=== PATIENT | male | born 1960 | race Hispanic/Latino ===

== ENCOUNTER 2018-05-14 09:18 | Emergency (ER) | payer OTHER ==
[~2018-05-14] VITALS: Ht 177.8 cm; Wt 95.3 kg
--- NOTE | 2018-05-14 10:09 | Diagnostic Imaging Report ---
PROCEDURE:FOOT 3 VIEW RT - HOPD COMPARISON:None. INDICATIONS:Right foot pain FINDINGS:There is no fracture or dislocation. Bony mineralization appears intact. No bony erosions. Mild soft tissue swelling. Spurring of the calcaneus at the insertion of the plantar fascia and Achilles tendon is noted. CONCLUSION:Mild spurring of the calcaneus. Carlo Frias D.O. Dictated by: Carlo Frias D.O. on 05/14/2018 at 10:19 Electronically approved by: Carlo Frias D.O. on 05/14/2018 at 10:19
== END 2018-05-14 11:54 | disposition home or self-care (01) ==
LOC: FSED 09:18
DX: M79.671 Pain in right foot (principal); M10.071 Idiopathic gout, right ankle and foot
CPT/HCPCS: 80053; 99283

== ENCOUNTER → 2024-04-21 | Day surgery (SDC) | payer BC, OTHER ==
[2024-04-21 12:40] VITALS: BP 130/82; PULSE 65; RESP 16; O2SAT 96
== END | disposition home or self-care (01) ==
LOC: OR 09:12 → EDBD 13:00
PROVIDERS: ATTEND Internal Medicine Gastroenterology
DX: Z12.11 Encounter for screening for malignant neoplasm of colon (principal); D12.3 Benign neoplasm of transverse colon; D12.4 Benign neoplasm of descending colon; D12.5 Benign neoplasm of sigmoid colon; K62.1 Rectal polyp; K62.89 Other specified diseases of anus and rectum; K64.8 Other hemorrhoids; Z71.89 Other specified counseling; Z71.3 Dietary counseling and surveillance; E66.9 Obesity, unspecified; Z01.810 Encounter for preprocedural cardiovascular examination; Z68.32 Body mass index [BMI] 32.0-32.9, adult
CPT/HCPCS: 45378; 45385; 93005